=== PATIENT | male | born 1985 | race African-American/Black ===

== ENCOUNTER 2019-01-19 00:45 | Emergency (ER) | payer MEDICAID ==
[~2019-01-19] VITALS: Ht 190.5 cm; Wt 116.0 kg
[2019-01-19 03:42] LABS: HEMATOCRIT. 48.1 % (42.0-52.0); HEMOGLOBIN. 16.1 g/dL (14.0-18.0); MEAN CORPUSCULAR VOLUME 89.3 fL (80.0-94.0); MEAN PLATELET VOLUME 8.9 fl (7.4-10.4); PLATELET 221 x1000/uL (130-400); RED BLOOD CELL COUNT 5.39 mill/uL (4.7-6.1); RED CELL DISTRIBUTION WIDTH 14.7 % (11.6-14.6)
[2019-01-19 03:48] LABS: CHLORIDE 100 mEq/L (98-107)
[2019-01-19 03:53] LABS: ETHANOL BLOOD < 10 mg/dL
[2019-01-19] MEDS ORDERED: POTASSIUM CHLORIDE 20MEQ TABLET SR PO SCH (04:37)
[2019-01-19 05:05] LABS: CLARITY URINE CLEAR (CLEAR); COLOR URINE DARK YELLOW (YELLOW); KETONES URINE 4+ (NEGATIVE); LEUKOCYTE ESTERASE URINE NEGATIVE (NEGATIVE); NITRITE URINE NEGATIVE (NEGATIVE); OCCULT BLOOD URINE 1+ (NEGATIVE); PH URINE 5.5 (4.5-8.0); PROTEIN URINE 2+ (NEGATIVE); SPECIFIC GRAVITY URINE 1.035 (1.005-1.030)
[2019-01-19 05:19] LABS: *BARBITURATES SCREEN URINE NEGATIVE (NEGATIVE); CANNABINOID URINE SCREEN PRESUMTIVE POSITIVE (NEGATIVE)
[2019-01-19 05:20] LABS: *AMPHETAMINES SCREEN URINE NEGATIVE (NEGATIVE); *BENZODIAZEPINES SCREEN URINE NEGATIVE (NEGATIVE); *COCAINE SCREEN URINE NEGATIVE (NEGATIVE); METHADONE URINE SCREEN NEGATIVE (NEGATIVE); OPIATES URINE SCREEN PRESUMTIVE POSITIVE (NEGATIVE); PHENCYCLIDINE URINE SCREEN NEGATIVE (NEGATIVE)
[2019-01-19 05:49] LABS: ATYPICAL LYMPHOCYTES 1; PLATELET ESTIMATE NORMAL
[2019-01-19 06:22] VITALS: BP 131/86
[2019-01-21] MEDS ORDERED: LEVE500T78 MT (16:46)
== END 2019-01-19 07:17 | disposition home or self-care (01) ==
LOC: ER 00:45
DX: F22 Delusional disorders (principal); E87.6 Hypokalemia; E11.9 Type 2 diabetes mellitus without complications; I10 Essential (primary) hypertension; F12.10 Cannabis abuse, uncomplicated; Z87.891 Personal history of nicotine dependence; Z90.89 Acquired absence of other organs
CPT/HCPCS: 36415; 71045; 80053; 80305; 80320; 81003; 82962; 85025; 99284; Z7610; G0480

== ENCOUNTER 2019-01-20 06:44 | Inpatient (IN) | payer MEDICAID ==
[~2019-01-20] VITALS: Ht 185.4 cm; Wt 131.5 kg
[2019-01-20] MEDS ORDERED: OLANZAPINE 10 MG/VIAL IM STA (06:48)
[2019-01-20] MEDS ORDERED: LORAZEPAM 2MG/ML CPJ IM STA (06:48)
[2019-01-20] MEDS ORDERED: OLANZAPINE 10 MG/VIAL IM ONE (06:51)
[2019-01-20] MEDS ORDERED: LORAZEPAM 2MG/ML CPJ ONE (06:51)
[2019-01-20 07:41] LABS: CHLORIDE 99 mEq/L (98-107)
[2019-01-20 07:43] LABS: HEMOGLOBIN. 16.4 g/dL (14.0-18.0); MEAN CORPUSCULAR HEMOGLOBIN 29.8 pg (28.0-32.0); MEAN PLATELET VOLUME 9.3 fl (7.4-10.4); PLATELET 219 x1000/uL (130-400); RED CELL DISTRIBUTION WIDTH 14.5 % (11.6-14.6)
[2019-01-20 07:46] LABS: ETHANOL BLOOD < 10 mg/dL
[2019-01-20] MEDS ORDERED: LORAZEPAM 2MG/ML CPJ IV ONE ×2 (09:00→16:15)
[2019-01-20] MEDS ORDERED: POTASSIUM CHLORIDE 20MEQ TABLET SR PO ONE (09:15)
[2019-01-20 09:43] LABS: PLATELET ESTIMATE NORMAL
[2019-01-20 09:59] LABS: INR 1.2; PROTHROMBIN TIME 12.6 sec (9.6-11.0)
[2019-01-20 10:00] LABS: CHLORIDE 104 mEq/L (98-107)
[2019-01-20 11:15] LABS: CLARITY URINE CLOUDY (CLEAR); COLOR URINE YELLOW (YELLOW); KETONES URINE 4+ (NEGATIVE); LEUKOCYTE ESTERASE URINE NEGATIVE (NEGATIVE); NITRITE URINE NEGATIVE (NEGATIVE); OCCULT BLOOD URINE 1+ (NEGATIVE); PROTEIN URINE 1+ (NEGATIVE); SPECIFIC GRAVITY URINE 1.018 (1.005-1.030)
[2019-01-20 12:01] LABS: CANNABINOID URINE SCREEN PRESUMTIVE POSITIVE (NEGATIVE); PHENCYCLIDINE URINE SCREEN NEGATIVE (NEGATIVE)
[2019-01-20 12:02] LABS: *AMPHETAMINES SCREEN URINE NEGATIVE (NEGATIVE); *BARBITURATES SCREEN URINE NEGATIVE (NEGATIVE); *BENZODIAZEPINES SCREEN URINE NEGATIVE (NEGATIVE); *COCAINE SCREEN URINE NEGATIVE (NEGATIVE); METHADONE URINE SCREEN NEGATIVE (NEGATIVE); OPIATES URINE SCREEN NEGATIVE (NEGATIVE)
[2019-01-20] MEDS ORDERED: GUAIFENESIN 200MG/10ML SUGAR FREE UDC PO PRN (13:45)
[2019-01-20] MEDS ORDERED: MAGNESIUM/ALUMINUM HYDROXIDE/SIMETHICONE 30ML UDC PO PRN (13:45)
[2019-01-20] MEDS ORDERED: HYDROCODONE/ACETAMINOPHEN 5/325MG TABLET PO PRN (13:45)
[2019-01-20] MEDS ORDERED: ACETAMINOPHEN 325MG TABLET PO PRN (13:45)
[2019-01-20] MEDS ORDERED: IPRATROPIUM/ALBUTEROL 0.5-3(2.5)MG/3ML NEB INH PRN (13:45)
[2019-01-20] MEDS ORDERED: LEVETIRACETAM 500MG PREMIX 100 ML IV SCH ×2 (13:45→14:00)
[2019-01-20] MEDS ORDERED: DIPHENHYDRAMINE 50MG/ML VIAL IV PRN ×2 (13:45→16:45)
[2019-01-20] MEDS ORDERED: CLONIDINE 0.1MG TABLET PO PRN (13:45)
[2019-01-20] MEDS ORDERED: ONDANSETRON HCL 4MG/2ML INJ IV PRN (13:45)
[2019-01-20] MEDS ORDERED: ENOXAPARIN 40MG/0.4ML SYR SUBCUT SCH (14:00)
[2019-01-20] MEDS: LORAZEPAM 2MG/ML CPJ IV PRN ×2 (16:39→22:45)
[2019-01-20 17:20] LABS: PHOSPHORUS 3.2 mg/dL (2.5-4.9)
[2019-01-20 17:25] LABS: CREATINE KINASE MB FRACTION 3.9 ng/mL (0.5-3.6)
[2019-01-20] MEDS ORDERED: CARBAMAZEPINE 100MG TABLET CHEW PO SCH (17:40)
[2019-01-20] MEDS ORDERED: DIPHENHYDRAMINE 50MG/ML VIAL IM STA (18:57)
[2019-01-20] MEDS ORDERED: HALOPERIDOL LACTATE 5MG/ML VIAL IM STA (18:57)
[2019-01-20 23:13] LABS: CREATINE KINASE MB FRACTION 7.9 ng/mL (0.5-3.6)
[2019-01-21 03:32] LABS: HEPATITIS B SURFACE ANTIGEN NEGATIVE
[2019-01-21 04:02] LABS: HEPATITIS A AB IGM NEGATIVE (NEGATIVE)
[2019-01-21 05:47] LABS: CHLORIDE 104 mEq/L (98-107)
[2019-01-21 05:49] LABS: HEMATOCRIT. 47.6 % (42.0-52.0); HEMOGLOBIN. 15.8 g/dL (14.0-18.0); MEAN CORPUSCULAR HEMOGLOBIN 29.8 pg (28.0-32.0); MEAN CORPUSCULAR VOLUME 89.9 fL (80.0-94.0); MEAN PLATELET VOLUME 9.3 fl (7.4-10.4); PLATELET 209 x1000/uL (130-400); RED BLOOD CELL COUNT 5.29 mill/uL (4.7-6.1); RED CELL DISTRIBUTION WIDTH 14.3 % (11.6-14.6)
[2019-01-21 05:54] LABS: LDL CHOLESTEROL 173 mg/dL (5-100)
[2019-01-21 05:55] LABS: HDL CHOLESTEROL 46 mg/dL (40-59)
[2019-01-21] MEDS: LORAZEPAM 2MG/ML CPJ IV PRN ×2 (05:56→21:54)
[2019-01-21 06:35] LABS: PLATELET ESTIMATE NORMAL
[2019-01-21] MEDS ORDERED: SODIUM CHLORIDE 0.9% 1,000 ML IV ONE (16:00)
[2019-01-21 16:30] VITALS: BP 138/89
[2019-01-21] MEDS ORDERED: LISI10TA5 MT (16:46)
[2019-01-21] MEDS ORDERED: NAPR500T7 MT (16:46)
[2019-01-21] MEDS ORDERED: LEVE500T98 MT (16:46)
[2019-01-21] MEDS ORDERED: ONDA4SOL PO (16:46)
[2019-01-21] MEDS ORDERED: CYCL10TA7 MT (16:46)
[2019-01-21] MEDS: FOLIC ACID 1MG TABLET PO SCH (17:56)
[2019-01-21] MEDS: MULTIVITAMINS,THER W-MINERALS TABLET PO SCH (17:56)
[2019-01-21] MEDS: CARBAMAZEPINE 100MG TABLET CHEW PO SCH (17:57)
[2019-01-21 18:41] VITALS: BP 138/89
[2019-01-21] MEDS ORDERED: PNEUMOCOCCAL 23-VAL P-SAC VAC 0.5 ML IM ONE (18:45)
[2019-01-21 20:00] VITALS: BP 138/85
[2019-01-21] MEDS: ENOXAPARIN 30MG/0.3ML SYR SUBCUT SCH (21:41)
[2019-01-21] MEDS ORDERED: DEXTROSE 50% WATER 50ML SYRINGE IV PRN (22:30)
[2019-01-22] VITALS: BP 125/77
[2019-01-22] MEDS: DOCUSATE SODIUM 100MG CAPSULE PO PRN ×2 (02:40→17:27)
[2019-01-22 04:00] VITALS: BP 134/81
[2019-01-22 04:14] LABS: HIV SCREEN 4G Non Reactive (Non Reactive)
[2019-01-22] MEDS: BLOOD SUGAR DIAGNOSTIC STRIP TEST SCH ×4 (06:30→21:50)
[2019-01-22] MEDS: INSULIN LISPRO 100 UNITS/ML SUBCUT SCH ×3 (06:31→21:00)
[2019-01-22 06:32] LABS: HEMATOCRIT. 43.8 % (42.0-52.0); MEAN CORPUSCULAR HEMOGLOBIN 30.4 pg (28.0-32.0); MEAN CORPUSCULAR VOLUME 89.1 fL (80.0-94.0); MEAN PLATELET VOLUME 9.2 fl (7.4-10.4); PLATELET 208 x1000/uL (130-400); RED BLOOD CELL COUNT 4.92 mill/uL (4.7-6.1); RED CELL DISTRIBUTION WIDTH 14.7 % (11.6-14.6)
[2019-01-22 07:55] LABS: CHLORIDE 104 mEq/L (98-107)
[2019-01-22 08:00] VITALS: BP 150/96
[2019-01-22 08:08] LABS: PHOSPHORUS 2.5 mg/dL (2.5-4.9)
[2019-01-22 08:19] LABS: CREATINE KINASE 1913 IU/L (39-308)
[2019-01-22] MEDS: CARBAMAZEPINE 100MG TABLET CHEW PO SCH (08:58)
[2019-01-22] MEDS: THIAMINE HCL 100MG TABLET PO SCH (08:58)
[2019-01-22] MEDS: FOLIC ACID 1MG TABLET PO SCH (08:58)
[2019-01-22] MEDS: MULTIVITAMINS,THER W-MINERALS TABLET PO SCH (08:58)
[2019-01-22] MEDS: ENOXAPARIN 30MG/0.3ML SYR SUBCUT SCH ×2 (08:58→21:49)
[2019-01-22] MEDS ORDERED: POTASSIUM CHLORIDE 20MEQ TABLET SR PO NR (10:15)
[2019-01-22 12:00] VITALS: BP 154/97
[2019-01-22] MEDS: DEXT 5%/0.9% NACL 1,000 ML IV SCH (12:08)
[2019-01-22 12:35] LABS: PLATELET ESTIMATE NORMAL
[2019-01-22 16:00] VITALS: BP 145/86
[2019-01-22 20:00] VITALS: BP 150/91
[2019-01-22] MEDS: HALOPERIDOL LACTATE 5MG/ML VIAL IM PRN (22:21)
[2019-01-23] VITALS: BP 146/92
[2019-01-23 04:00] VITALS: BP 140/88
[2019-01-23] MEDS: DEXT 5%/0.9% NACL 1,000 ML IV SCH ×4 (06:19→21:28)
[2019-01-23] MEDS: CARBAMAZEPINE 100MG TABLET CHEW PO SCH ×2 (06:26→17:44)
[2019-01-23] MEDS: BLOOD SUGAR DIAGNOSTIC STRIP TEST SCH ×4 (06:27→21:25)
[2019-01-23] MEDS: INSULIN LISPRO 100 UNITS/ML SUBCUT SCH ×4 (06:27→21:00)
[2019-01-23 07:04] LABS: HEMATOCRIT. 45.5 % (42.0-52.0); HEMOGLOBIN. 15.2 g/dL (14.0-18.0); MEAN CORPUSCULAR HEMOGLOBIN 30.1 pg (28.0-32.0); MEAN CORPUSCULAR VOLUME 90.1 fL (80.0-94.0); MEAN PLATELET VOLUME 9.5 fl (7.4-10.4); PLATELET 212 x1000/uL (130-400); RED BLOOD CELL COUNT 5.05 mill/uL (4.7-6.1); RED CELL DISTRIBUTION WIDTH 14.5 % (11.6-14.6)
[2019-01-23 08:00] VITALS: BP 139/87
[2019-01-23 08:15] LABS: CHLORIDE 101 mEq/L (98-107)
[2019-01-23 08:40] LABS: CREATINE KINASE 1321 IU/L (39-308)
[2019-01-23] MEDS: THIAMINE HCL 100MG TABLET PO SCH (08:57)
[2019-01-23] MEDS: MULTIVITAMINS,THER W-MINERALS TABLET PO SCH (08:57)
[2019-01-23] MEDS: FOLIC ACID 1MG TABLET PO SCH (08:57)
[2019-01-23] MEDS: ENOXAPARIN 30MG/0.3ML SYR SUBCUT SCH ×2 (08:57→21:25)
[2019-01-23] MEDS ORDERED: POTASSIUM CHLORIDE 20MEQ TABLET SR PO SCH (10:00)
[2019-01-23 12:00] VITALS: BP 122/73
[2019-01-23 16:00] VITALS: BP 134/82
[2019-01-23 20:00] VITALS: BP 146/89
[2019-01-23] MEDS: METOPROLOL TARTRATE 50MG TABLET PO SCH (21:25)
[2019-01-23 21:55] LABS: PLATELET ESTIMATE NORMAL
[2019-01-24] VITALS: BP 139/88
[2019-01-24] MEDS: DEXT 5%/0.9% NACL 1,000 ML IV SCH (00:42)
[2019-01-24 04:00] VITALS: BP 153/95
[2019-01-24] MEDS: CARBAMAZEPINE 100MG TABLET CHEW PO SCH ×2 (06:28→17:29)
[2019-01-24] MEDS: BLOOD SUGAR DIAGNOSTIC STRIP TEST SCH ×4 (06:28→21:05)
[2019-01-24] MEDS: INSULIN LISPRO 100 UNITS/ML SUBCUT SCH ×4 (06:29→21:00)
[2019-01-24 07:04] LABS: HEMATOCRIT. 43.3 % (42.0-52.0); HEMOGLOBIN. 14.7 g/dL (14.0-18.0); MEAN CORPUSCULAR HEMOGLOBIN 30.5 pg (28.0-32.0); MEAN PLATELET VOLUME 9.9 fl (7.4-10.4); PLATELET 232 x1000/uL (130-400); RED BLOOD CELL COUNT 4.82 mill/uL (4.7-6.1); RED CELL DISTRIBUTION WIDTH 14.5 % (11.6-14.6)
[2019-01-24 07:42] LABS: CHLORIDE 105 mEq/L (98-107)
[2019-01-24 07:51] LABS: CREATINE KINASE 761 IU/L (39-308)
[2019-01-24 08:00] VITALS: BP 150/89
[2019-01-24] MEDS: MULTIVITAMINS,THER W-MINERALS TABLET PO SCH (08:59)
[2019-01-24] MEDS: ENOXAPARIN 30MG/0.3ML SYR SUBCUT SCH ×2 (08:59→20:50)
[2019-01-24] MEDS: FOLIC ACID 1MG TABLET PO SCH (09:00)
[2019-01-24] MEDS: METOPROLOL TARTRATE 50MG TABLET PO SCH ×2 (09:00→20:51)
[2019-01-24] MEDS: THIAMINE HCL 100MG TABLET PO SCH (09:00)
[2019-01-24] MEDS: HALOPERIDOL LACTATE 5MG/ML VIAL IM PRN (11:27)
[2019-01-24 12:00] VITALS: BP 135/92
[2019-01-24 16:00] VITALS: BP 159/81
[2019-01-24 20:00] VITALS: BP 158/91
[2019-01-24 20:39] LABS: PLATELET ESTIMATE NORMAL
[2019-01-24] MEDS: LORAZEPAM 1MG TABLET PO PRN (20:45)
[2019-01-25] VITALS: BP 115/66
[2019-01-25 04:00] VITALS: BP 126/81
[2019-01-25] MEDS: BLOOD SUGAR DIAGNOSTIC STRIP TEST SCH ×4 (06:29→20:12)
[2019-01-25] MEDS: CARBAMAZEPINE 100MG TABLET CHEW PO SCH ×2 (06:39→16:56)
[2019-01-25] MEDS: INSULIN LISPRO 100 UNITS/ML SUBCUT SCH ×4 (07:15→20:14)
[2019-01-25 08:00] VITALS: BP 132/89
[2019-01-25] MEDS: FOLIC ACID 1MG TABLET PO SCH (09:36)
[2019-01-25] MEDS: THIAMINE HCL 100MG TABLET PO SCH (09:36)
[2019-01-25] MEDS: MULTIVITAMINS,THER W-MINERALS TABLET PO SCH (09:36)
[2019-01-25] MEDS: ENOXAPARIN 30MG/0.3ML SYR SUBCUT SCH ×2 (09:36→20:23)
[2019-01-25] MEDS: METOPROLOL TARTRATE 50MG TABLET PO SCH ×2 (09:36→20:24)
[2019-01-25] MEDS: LORAZEPAM 1MG TABLET PO PRN (09:45)
[2019-01-25] MEDS: DEXT 5%/0.9% NACL 1,000 ML IV SCH ×3 (10:02→23:22)
[2019-01-25 12:00] VITALS: BP 128/89
[2019-01-25 16:00] VITALS: BP 138/76
[2019-01-25 20:00] VITALS: BP 145/85
[2019-01-26] VITALS (7 sets, daily range): BP systolic 127–153; BP diastolic 71–99
[2019-01-26] MEDS: DEXT 5%/0.9% NACL 1,000 ML IV SCH ×3 (06:02→17:46)
[2019-01-26] MEDS: BLOOD SUGAR DIAGNOSTIC STRIP TEST SCH ×4 (06:09→20:04)
[2019-01-26] MEDS: INSULIN LISPRO 100 UNITS/ML SUBCUT SCH ×4 (06:18→20:05)
[2019-01-26 06:50] LABS: CHLORIDE 104 mEq/L (98-107); HEMATOCRIT. 41.6 % (42.0-52.0); HEMOGLOBIN. 13.8 g/dL (14.0-18.0); MEAN CORPUSCULAR HEMOGLOBIN 29.9 pg (28.0-32.0); MEAN PLATELET VOLUME 9.2 fl (7.4-10.4); PLATELET 227 x1000/uL (130-400); RED BLOOD CELL COUNT 4.63 mill/uL (4.7-6.1); RED CELL DISTRIBUTION WIDTH 14.2 % (11.6-14.6)
[2019-01-26] MEDS: THIAMINE HCL 100MG TABLET PO SCH (09:00)
[2019-01-26] MEDS: METOPROLOL TARTRATE 50MG TABLET PO SCH ×2 (09:33→20:36)
[2019-01-26] MEDS: FOLIC ACID 1MG TABLET PO SCH (09:33)
[2019-01-26] MEDS: CARBAMAZEPINE 100MG TABLET CHEW PO SCH ×2 (09:33→17:42)
[2019-01-26] MEDS: MULTIVITAMINS,THER W-MINERALS TABLET PO SCH (09:36)
[2019-01-26] MEDS: ENOXAPARIN 30MG/0.3ML SYR SUBCUT SCH ×2 (09:37→20:35)
[2019-01-26 16:46] LABS: PLATELET ESTIMATE NORMAL
[2019-01-27] VITALS (7 sets, daily range): BP systolic 120–142; BP diastolic 60–93
[2019-01-27] MEDS: DEXT 5%/0.9% NACL 1,000 ML IV SCH (02:02)
[2019-01-27] MEDS: BLOOD SUGAR DIAGNOSTIC STRIP TEST SCH ×4 (06:00→20:13)
[2019-01-27] MEDS: INSULIN LISPRO 100 UNITS/ML SUBCUT SCH ×4 (06:35→20:18)
[2019-01-27] MEDS: FOLIC ACID 1MG TABLET PO SCH (08:50)
[2019-01-27] MEDS: THIAMINE HCL 100MG TABLET PO SCH (08:50)
[2019-01-27] MEDS: CARBAMAZEPINE 100MG TABLET CHEW PO SCH ×2 (08:50→17:51)
[2019-01-27] MEDS: MULTIVITAMINS,THER W-MINERALS TABLET PO SCH (08:51)
[2019-01-27] MEDS: ENOXAPARIN 30MG/0.3ML SYR SUBCUT SCH ×2 (08:51→20:13)
[2019-01-27] MEDS: METOPROLOL TARTRATE 50MG TABLET PO SCH ×2 (08:51→20:13)
[2019-01-27] MEDS: HALOPERIDOL LACTATE 5MG/ML VIAL IM PRN (20:46)
[2019-01-28] VITALS (7 sets, daily range): BP systolic 134–154; BP diastolic 58–97
[2019-01-28] MEDS: BLOOD SUGAR DIAGNOSTIC STRIP TEST SCH ×4 (06:12→20:56)
[2019-01-28] MEDS: CARBAMAZEPINE 100MG TABLET CHEW PO SCH ×2 (06:57→18:33)
[2019-01-28 07:03] LABS: CHLORIDE 104 mEq/L (98-107)
[2019-01-28] MEDS: INSULIN LISPRO 100 UNITS/ML SUBCUT SCH ×4 (07:04→20:56)
[2019-01-28 07:16] LABS: HEMATOCRIT. 39.9 % (42.0-52.0); HEMOGLOBIN. 13.2 g/dL (14.0-18.0); MEAN CORPUSCULAR HEMOGLOBIN 30.1 pg (28.0-32.0); MEAN CORPUSCULAR VOLUME 90.8 fL (80.0-94.0); PLATELET 207 x1000/uL (130-400); RED CELL DISTRIBUTION WIDTH 14.5 % (11.6-14.6)
[2019-01-28] MEDS: FOLIC ACID 1MG TABLET PO SCH (09:39)
[2019-01-28] MEDS: MULTIVITAMINS,THER W-MINERALS TABLET PO SCH (09:40)
[2019-01-28] MEDS: THIAMINE HCL 100MG TABLET PO SCH (09:40)
[2019-01-28] MEDS: METOPROLOL TARTRATE 50MG TABLET PO SCH ×2 (09:40→20:52)
[2019-01-28] MEDS: ENOXAPARIN 30MG/0.3ML SYR SUBCUT SCH ×2 (09:41→20:58)
[2019-01-28 10:32] LABS: PLATELET ESTIMATE NORMAL
[2019-01-28] MEDS: DOCUSATE SODIUM 100MG CAPSULE PO PRN (10:39)
[2019-01-28] MEDS: LORAZEPAM 1MG TABLET PO PRN (19:15)
[2019-01-28] MEDS ORDERED: QUETIAPINE FUMARATE 25MG TABLET PO SCH (21:00)
== END 2019-01-28 23:10 | DRG 53 ==
LOC: ER 06:44 → ENRESERV 15:19 → CANRESERV 15:19 → ENRESERV 19:51 → 8WST 01-21 12:31 → ENRESERV 01-21 14:28 → 5WST 01-22 17:32 → 8WST 01-28 09:03
PROVIDERS: ADMIT Internal Medicine; ATTEND Internal Medicine
PROC: 4A00X4Z Measurement of Central Nervous Electrical Activity, External Approach (ICD-10-PCS; principal; 2019-01-24)
DX: G40.909 Epilepsy, unspecified, not intractable, without status epilepticus (principal); N17.9 Acute kidney failure, unspecified; E11.22 Type 2 diabetes mellitus with diabetic chronic kidney disease; E87.1 Hypo-osmolality and hyponatremia; E87.2 Acidosis; E87.6 Hypokalemia; M62.82 Rhabdomyolysis; D18.03 Hemangioma of intra-abdominal structures; F12.90 Cannabis use, unspecified, uncomplicated; F10.10 Alcohol abuse, uncomplicated; R45.1 Restlessness and agitation; I12.9 Hypertensive chronic kidney disease with stage 1 through stage 4 chronic kidney disease, or unspecified chronic kidney disease; N18.9 Chronic kidney disease, unspecified; R74.0 Nonspecific elevation of levels of transaminase and lactic acid dehydrogenase [LDH]; E78.5 Hyperlipidemia, unspecified; F22 Delusional disorders; Z82.49 Family history of ischemic heart disease and other diseases of the circulatory system; Z83.3 Family history of diabetes mellitus; Z79.4 Long term (current) use of insulin; Z79.84 Long term (current) use of oral hypoglycemic drugs
CPT/HCPCS: 36415; 71045; 76700; 80048; 80061; 80305; 80320; 82105; 82550; 82553; 82962; 83605; 83735; 84100; 84145; 84443; 84484; 86705; 86709; 86803; 87340; 87389; 93005; 93970; 96374; 97162; 97166; 99285; J1200; J1630; J1650; J1953; J2060; J3490; J7042; G0480

== ENCOUNTER 2019-02-05 18:12 | Emergency (ER) | payer MEDICAID ==
[~2019-02-05] VITALS: Ht 185.4 cm; Wt 123.0 kg
[~2019-02-05 18:12] MED LIST: CYCL10TA7 MT; LEVE500T98 MT; LISI10TA5 MT; NAPR500T7 MT; ONDA4SOL PO
[2019-02-05 18:14] VITALS: BP 156/93
== END 2019-02-05 21:42 | disposition left against medical advice (07) ==
LOC: ER 18:16
DX: R04.0 Epistaxis (principal); Z53.21 Procedure and treatment not carried out due to patient leaving prior to being seen by health care provider